=== PATIENT | female | born 1990 | race Caucasian/White ===

== ENCOUNTER 2021-10-09 19:05 | Inpatient (IN) | payer OTHER ==
[~2021-10-09] VITALS: Ht 175.3 cm; Wt 103.4 kg
[2021-10-10] MEDS ORDERED: PRENATAL + DHA1 EAC1 PO (00:23)
== END 2021-10-13 14:39 | disposition home or self-care (01) | DRG 788 ==
LOC: LDR 19:05 → OB/GYN 10-10 17:33
PROVIDERS: ADMIT Obstetrics & Gynecology; ATTEND Obstetrics & Gynecology
PROC: 4A1HXCZ Monitoring of Products of Conception, Cardiac Rate, External Approach (ICD-10-PCS; 2021-10-09)
PROC: 10D00Z1 Extraction of Products of Conception, Low, Open Approach (ICD-10-PCS; principal; 2021-10-10 15:00)
DX: O62.0 Primary inadequate contractions (principal); O76 Abnormality in fetal heart rate and rhythm complicating labor and delivery; O64.0XX0 Obstructed labor due to incomplete rotation of fetal head, not applicable or unspecified; Z3A.39 39 weeks gestation of pregnancy; Z37.0 Single live birth; Z20.822 Contact with and (suspected) exposure to COVID-19